=== PATIENT | female | born 1955 ===

== ENCOUNTER 2018-01-26 20:49 | Emergency (ER) ==
[2018-01-26] MEDS ORDERED: MORPHINE 2 MG/ML SYRINGE IVP PRN (21:05)
[2018-01-26] MEDS ORDERED: ZOFRAN 4 MG/2 ML IVP STA (21:05)
[2018-01-26 21:06] VITALS: TEMP 97.8; BMI 23.2
[2018-01-26] MEDS ORDERED: MORPHINE 2 MG/ML SYRINGE ONE (21:49)
--- NOTE | 2018-01-26 22:15 | CT ---
Exam: CT of the abdomen and pelvis without contrast History: Abdominal pain Technique: [address] of the abdomen pelvis without intravascular contrast FINDINGS: The lung bases are clear. No significant liver abnormality. The adrenals, pancreas and spl een are unremarkable. The stomach and hiatus are unremarkable.Prior cholecystectomy. Kidneys and prox imal collecting system are unremarkable. The appendix is normal Bowel loops demonstrate normal calibe r. No inflamatory change seen in the mesentery or retroperitoneum. Calcified uterine fibroid measures 4.5 cm diameter. Normal urinary bladder. No pelvic fat inflammat ion. Normal pelvic bowel loops. No acute abnormality of the skeleton. Impression: 1. No inflammatory process, bowel or urinary obstruction is seen. 2. Calcified pelvic mass probably a fibroid.
--- NOTE | 2018-01-26 22:30 | ED.PDOC ---
General ED Provider: Dr. KELVIN WANG-ER Chief Complaint: Abdominal Pain Stated Complaint: im hurting Time Seen by Physician: 20:50 Mode of Arrival: Walk-In Information Source: Patient Exam Limitations: No limitations Nursing and Triage Documentation Reviewed and Agree: Yes Reviewed sepsis parameters & appropriate labs ordered?: Yes System Inflammatory Response Syndrome: Not Applicable Sepsis Protocol: For patient's 13 years and over: Temp is 96.8 and below OR 101 and greater Pulse >90 BPM Resp >20/minute Acutely Altered Mental Status Are patient's symptoms suggestive of a new infection, such as: -Pneumonia -Skin, Soft Tissue -Endocarditis -UTI -Bone, Joint Infection -Implantable Device -Acute Abdominal Infection -Wound Infection -Meningitis -Blood Stream Catheter Infection -Unknown GI Complaint Exam - Abdominal Pain Complaint/Exam Onset: Gradual Duration: several hours Symptoms Are: Still present Timing: Constant Initial Severity: Mild Current Severity: Mild Location of Pain: Diffuse Character: Reports: Dull, Aching Alleviating: Reports: None Associated Signs and Symptoms: Denies: Diaphoresis, Fever, Cough, Chest pain, Dizziness, Back pain, Constipation, Blood in stool, Dysuria, Urinary frequency, Decreased urine output, Decreased appetite, Vaginal bleeding, Vaginal discharge , Nausea, Vomiting, Diarrhea, Sore throat, Decreased activity Patient Rh Status: Unknown Abdominal Findings: Present: None Differential Diagnoses: Appendicitis, Renal Colic, Ureteral Stone, UTI Quality Indicator For Non-Traumatic Chest Pain/Syncope: EKG Performed Review of Systems - Review Of Systems Constitutional: Reports: No symptoms Eyes: Reports: No symptoms Ears, Nose, Mouth, Throat: Reports: No symptoms Respiratory: Reports: No symptoms Cardiac: Reports: No symptoms GI: Reports: Abdominal pain : Reports: No symptoms Musculoskeletal: Reports: No symptoms Skin: Reports: No symptoms Neurological: Reports: No symptoms Endocrine: Reports: No symptoms Hematologic/Lymphatic: Reports: No symptoms All Other Systems: Reviewed and Negative Past Medical History - Past Medical History Previously Healthy: No Endocrine: Reports: Unknown Cardiovascular: Reports: Unknown Respiratory: Reports: Unknown Hematological: Reports: Unknown Gastrointestinal: Reports: Unknown Genitourinary: Reports: Unknown Neuro/Psych: Reports: Unknown Musculoskeletal: Reports: Unknown Cancer: Reports: Unknown Last Menstrual Period: unknown - Surgical History General Surgical History: Reports: Unknown - Family History Family History: Reports: Unknown - Social History Smoking Status: Never smoker Hx Substance Use: No Alcohol Screening: None Lives: With family Physical Exam - Physical Exam Appearance: Well-appearing, No pain distress, Well-nourished Eyes: FAUSTO, EOMI, Conjunctiva clear ENT: Ears normal, Nose normal, Oropharynx normal Neck: Supple Respiratory: Airway patent, Breath sounds clear, Breath sounds equal, Respirations nonlabored Cardiovascular: RRR GI/: Soft, Nontender, No masses, Bowel sounds normal, No Organomegaly Musculoskeletal: Normal strength, ROM intact, No edema, No calf tenderness Skin: Warm, Dry, Normal color Neurological: Sensation intact, Motor intact, Reflexes intact, Cranial nerves intact, Alert, Oriented Psychiatric: Affect appropriate Interpretation - Radiology Interpretation Radiology Interpretation By: Radiologist Radiology Results: Positive Exam Interpreted: CT Scan - EKG Interpretation Time of EKG #1: 21:20 Rate: Normal Rhythm: Sinus Ectopy: None [place]: NL ST Segment: Normal Interpretation: nsr Critical Care Note - Critical Care Note Total Time (mins): 0 Course - Course Hematology/Chemistry: 01/26/18 21:12 01/26/18 21:12 Orders, Labs, Meds: Lab Review 01/26/18 01/26/18 01/26/18 21:12 21:12 21:12 WBC 8.14 RBC 4.17 L Hgb 12.9 Hct 37.5 MCV 89.9 MCH 30.9 MCHC 34.4 RDW Coeff of Jacki 11.7 Plt Count 179 Immature Gran % (Auto) 0.2 Neut % (Auto) 72.3 Lymph % (Auto) 20.5 [place] % (Auto) 6.0 Eos % (Auto) 0.6 Baso % (Auto) 0.4 Immature Gran # (Auto) 0.0 Neut # (Auto) 5.9 Lymph # (Auto) 1.7 [place] # (Auto) 0.5 Eos # (Auto) 0.1 Baso # (Auto) 0.0 ESR 8 Sodium 142 Potassium 3.7 Chloride 103 Carbon Dioxide 32 H Anion Gap 10.7 BUN 10 Creatinine 0.60 Estimated GFR (MDRD) 101.00 BUN/Creatinine Ratio 16.66 Glucose 96 Calcium 8.9 Total Bilirubin 0.4 AST 20 ALT 17 Alkaline Phosphatase 80 Total Creatine Kinase Troponin I Total Protein 6.4 Albumin 4.2 Globulin 2.2 Albumin/Globulin Ratio 1.91 Amylase Lipase Urine Color Urine Clarity Urine pH Ur Specific [place] Urine Protein Urine Glucose (UA) Urine Ketones Urine Blood Urine Nitrite Urine Bilirubin Urine Urobilinogen Ur Leukocyte Esterase Influ A Molecular Assay Influ B Molecular Assay 01/26/18 01/26/18 01/26/18 21:12 21:24 22:06 WBC RBC Hgb Hct MCV MCH MCHC RDW Coeff of Jacki Plt Count Immature Gran % (Auto) Neut % (Auto) Lymph % (Auto) [place] % (Auto) Eos % (Auto) Baso % (Auto) Immature Gran # (Auto) Neut # (Auto) Lymph # (Auto) [place] # (Auto) Eos # (Auto) Baso # (Auto) ESR Sodium Potassium Chloride Carbon Dioxide Anion Gap BUN Creatinine Estimated GFR (MDRD) BUN/Creatinine Ratio Glucose Calcium Total Bilirubin AST ALT Alkaline Phosphatase Total Creatine Kinase 71 Troponin I < 0.0100 Total Protein Albumin Globulin Albumin/Globulin Ratio Amylase 82 Lipase 36 Urine Color Yellow Urine Clarity Clear Urine pH >=9.0 Ur Specific [place] 1.015 Urine Protein Negative Urine Glucose (UA) Negative Urine Ketones Negative Urine Blood Negative Urine Nitrite Negative Urine Bilirubin Negative Urine Urobilinogen 0.2 Ur Leukocyte Esterase Negative Influ A Molecular Assay Negative by naat Influ B Molecular Assay Negative by naat Orders Category Date Time Status EKG-(ED ONLY) Stat CARDIO 01/26/18 21:03 Completed ED IV/MEDIPORT/POWERPORT .ONCE EMERGENCY 01/26/18 21:05 Active AMYLASE Stat LAB 01/26/18 21:12 Completed CBC W/ AUTO DIFF Stat LAB 01/26/18 21:12 Completed COMPREHENSIVE METABOLIC PANEL Stat LAB 01/26/18 21:12 Completed CREATINE KINASE Stat LAB 01/26/18 21:12 Completed ESR Stat LAB 01/26/18 21:12 Completed FLU A/B MOLECULAR Stat LAB 01/26/18 21:24 Completed LIPASE Stat LAB 01/26/18 21:12 Completed MOLECULAR GROUP A STREP Stat LAB 01/26/18 21:24 Completed TROPONIN I Stat LAB 01/26/18 21:12 Completed URINALYSIS C & S IF INDICATED Stat LAB 01/26/18 22:06 Completed 0.9 % Sodium Chloride [Saline Flush] MEDS 01/26/18 21:05 Ordered 1 syr IVF PRN PRN Morphine Sulfate [Morphine 2 mg/ml Syringe] MEDS 01/26/18 21:05 Ordered 2 mg IVP Q4H PRN Ondansetron HCl/Pf [Zofran 4 mg/2 ml] MEDS 01/26/18 21:05 Discontinued 4 mg IVP ONCE STA CT ABDOMEN/PELVIS WO CONTRAST Stat RADS 01/26/18 21:05 Completed Medications Generic Name Dose Route Start Last Admin Trade Name Freq PRN Reason Stop Dose Admin Morphine Sulfate 2 mg 01/26/18 21:05 01/26/18 21:52 Morphine 2 Mg/Ml Syringe IVP 2 mg Q4H PRN Administration Abdominal Pain Sodium Chloride 1 syr 01/26/18 21:05 01/26/18 22:00 Saline Flush IVF 1 syr PRN PRN Administration To flush IV Discontinued Medications Generic Name Dose Route Start Last Admin Trade Name Freq PRN Reason Stop Dose Admin Ondansetron HCl 4 mg 01/26/18 21:05 01/26/18 21:50 Zofran 4 Mg/2 Ml IVP 01/26/18 21:06 4 mg ONCE STA Administration Vital Signs: Temp Pulse Resp BP Pulse Ox 01/26/18 20:51 97.8 F 72 20 158/94 H 98 Departure - Departure Time of Disposition: 22:30 Disposition: HOME SELF-CARE Discharge Problem: Abdominal pain Instructions: Abdominal Pain (ED) Condition: Good Pt referred to PMD for follow-up: No IPMP verified?: No Additional Instructions: please contact your pcp on monday regarding the pelvic mass Allergies/Adverse Reactions: Allergies No Known Allergies Allergy (Unverified 01/26/18 21:00) Home Medications: Ambulatory Orders Atorvastatin Calcium [Lipitor] 20 mg PO BEDTIME 01/26/18 Levothyroxine Sodium 25 mcg PO DAILY 01/26/18 Losartan Potassium [Cozaar] 25 mg PO DAILY 01/26/18 Pantoprazole Sodium [Protonix] 40 mg PO BEDTIME 01/26/18 Disposition Discussed With: Patient, Family
[2018-01-26 22:50] VITALS: BP 150/85
== END 2018-01-26 22:50 | disposition home or self-care (01) ==
LOC: ED 20:49
DX: R10.84 Generalized abdominal pain (principal)
CPT/HCPCS: 36415; 80053; 81001; 82150; 82550; 83690; 84484; 85025; 85651; 87502; 87651; 93005; 93010; 96374; 96375; 99283